=== PATIENT | male | born 1970 | race Hispanic/Latino ===

== ENCOUNTER 2022-05-24 18:35 | Emergency (ER) | payer SELFPAY ==
[2022-05-24] MEDS ORDERED: Ketorolac Tromethamine 30 MG/ML VIAL ONE (22:20)
[2022-05-24] MEDS ORDERED: Dexameth. Sod Phosp. 10 MG/ML (CHEMO USE ONLY) ONE (22:20)
== END 2022-05-24 22:45 | disposition home or self-care (01) ==
LOC: ERS 18:35
DX: S09.22XA Traumatic rupture of left ear drum, initial encounter (principal); H60.92 Unspecified otitis externa, left ear; X58.XXXA Exposure to other specified factors, initial encounter; F17.210 Nicotine dependence, cigarettes, uncomplicated
CPT/HCPCS: 96372; 99282; J1100; J1885

== ENCOUNTER 2022-05-26 13:01 | Emergency (ER) | payer SELFPAY ==
[2022-05-26] MEDS ORDERED: Ketorolac Tromethamine 30 MG/ML VIAL ONE (13:48)
[2022-05-26] MEDS ORDERED: Acetaminophen 500 MG TAB ONE (13:48)
== END 2022-05-26 14:25 | disposition home or self-care (01) ==
LOC: ERS 13:01
DX: M25.511 Pain in right shoulder (principal); F17.210 Nicotine dependence, cigarettes, uncomplicated
CPT/HCPCS: 96372; J1885